=== PATIENT | male | born 1975 | race Caucasian/White ===

== ENCOUNTER 2020-12-09 22:58 | Inpatient (IN) ==
[2020-12-10 00:14] LABS: Albumin 2.8 g/dL (3.2-5.2); Albumin/Globulin Ratio 0.8 (1-3); C Reactive Protein 23.08 mg/L (<8.01); Calcium 9.3 mg/dL (8.6-10.3); Globulin 3.6 g/dL (2-4); Total Bilirubin 5.1 mg/dL (0.2-1.0); Total Protein 6.4 g/dL (6.4-8.9)
[2020-12-10 00:19] LABS: INR 1.73 (0.86-1.15)
[2020-12-10] MEDS ORDERED: Iodixanol (CONTRAST) 320 MG/ML 100 ML SDV IV ONE ×2 (00:36→01:23)
[2020-12-10 01:14] LABS: Magnesium 1.8 mg/dL (1.9-2.7)
[2020-12-10 01:17] LABS: Troponin I 0.01 ng/mL (<0.03)
[2020-12-10 01:42] LABS: Hematocrit 25 % (42-52); Hemoglobin 8.6 g/dL (14.0-18.0); Mean Corpuscular HGB Conc 35 g/dL (31-36); Mean Corpuscular Hemoglobin 35 pg (27-31); Mean Corpuscular Volume 102 fL (80-94); Red Blood Count 2.43 10^6 /uL (4.18-5.48); Red Cell Distribution Width 14 % (10-15); White Blood Count 6.4 10^3/uL (3.5-10.8)
[2020-12-10 01:58] LABS: ABS Neutrophils 4.4 10^3/ul (1.5-7.7); Eosinophil % 0.8 %; Lymphocyte % 15.6 %; Mean Platelet Volume 7.1 fL (7.4-10.4); Platelet Count 92 10^3/uL (150-450)
[2020-12-10] MEDS ORDERED: Magnesium Sulfate 2 gm BAG 2 GM/50 ML BAG IVPB ONE (04:29)
[2020-12-10 04:38] LABS: Direct Bilirubin 1.6 mg/dL (0.03-0.18)
[2020-12-10] MEDS ORDERED: Ondansetron 4 mg VIAL 2 MG/ML 2 ml VIAL IV PRN (05:10)
[2020-12-10 07:26] LABS: Rapid COVID-19 Molecular Undetected (Undetected)
[2020-12-10 07:55] LABS: TSH Ultra Thyroid Stim Horm 2.16 mcIU/mL (0.34-5.60)
[2020-12-10 08:06] LABS: Folate 5.31 ng/mL (5.90-24.80)
[2020-12-10 09:17] LABS: ABS Eosinophils 0.1 10^3/ul (0-0.6); ABS Lymphocytes 1.2 10^3/ul (1.0-4.8); ABS Monocytes 0.9 10^3/ul (0-0.8); ABS Neutrophils 4.5 10^3/ul (1.5-7.7); Hematocrit 24 % (42-52); Hemoglobin 8.4 g/dL (14.0-18.0); Lymphocyte % 17.6 %; Mean Corpuscular HGB Conc 34 g/dL (31-36); Mean Corpuscular Hemoglobin 35 pg (27-31); Mean Corpuscular Volume 101 fL (80-94); Mean Platelet Volume 6.7 fL (7.4-10.4); Nucleated Red Blood Cells % 0.1; Platelet Count 94 10^3/uL (150-450); Red Blood Count 2.42 10^6 /uL (4.18-5.48); Red Cell Distribution Width 14 % (10-15); White Blood Count 6.7 10^3/uL (3.5-10.8)
[2020-12-10 09:21] LABS: Activated Partial Thrombo Time 32.8 seconds (26.0-38.0); INR 1.79 (0.86-1.15)
[2020-12-10 09:57] LABS: Urine Appearance Cloudy; Urine Bilirubin Negative (Negative); Urine Blood Negative (Negative); Urine Color Amber; Urine Glucose Negative (Negative); Urine Ketones Negative (Negative); Urine Nitrite Negative (Negative); Urine Protein 1+(30 mg/dL) (Negative); Urine Specific Gravity 1.058 (1.002-1.030); Urine Urobilinogen Positive (Negative)
[2020-12-10 10:07] LABS: Urine Bacteria 1+ (Absent); Urine Red Blood Cell 3+(>10/hpf) (Absent); Urine Sperm Present (Absent); Urine Squamous Epithelial Cell Present (Absent); Urine White Blood Cell Trace(0-5/hpf) (Absent); Urine Yeast Present (Absent)
[2020-12-10 10:35] LABS: Hepatitis B Surface Antigen Nonreactive (Nonreactive)
[2020-12-10 10:40] LABS: Hepatitis A Ab IgM Negative (Negative); Hepatitis B Core IgM Nonreactive (Nonreactive)
[2020-12-10 10:52] LABS: Hepatitis B Surface Ab Not Immune (Immune); Hepatitis C Antibody Negative (Negative)
[2020-12-10] MEDS: Nicotine PATCH 14 MG/24 HR PATCH TRANSDERM SCH (11:54)
[2020-12-10] MEDS: Heparin 5000 UNITS/ML 1 mL VIAL SUBCUT SCH ×2 (13:13→20:05)
[2020-12-10] MEDS: Mupirocin 2% OINT TUBE TOPICAL SCH ×2 (13:13→20:05)
[2020-12-10] MEDS: Multivitamins/Minerals TAB PO SCH (13:13)
[2020-12-10] MEDS ORDERED: Albumin Human 25% 25 GM/100 ML BTL IV SCH (16:00)
[2020-12-10 16:13] LABS: Body Fluid Source Peritonial Fluid
[2020-12-10] MEDS ORDERED: Albumin Human 25% 25 GM/100 ML BTL IV ONE (16:13)
[2020-12-10] MEDS ORDERED: Albumin Human 25% 50 GM/200 ML BTL IV ONE (16:18)
[2020-12-10] MEDS ORDERED: Polyethylene Glycol 3350 17 GM PACKET PO PRN (16:21)
[2020-12-10] MEDS: Albumin Human 25% 25 GM/100 ML BTL IV SCH ×2 (16:37→17:33)
[2020-12-10 17:26] LABS: Body Fluid WBC 1158 /mcL
[2020-12-10 17:59] LABS: Body Fluid Mono 47 %; Body Fluid Total Cells Counted 200
[2020-12-10 18:00] LABS: Body Fluid Appearance Clear; Body Fluid Color Yellow
[2020-12-11 05:15] LABS: INR 1.84 (0.86-1.15)
[2020-12-11 05:22] LABS: ABS Eosinophils 0.1 10^3/ul (0-0.6); ABS Lymphocytes 1.1 10^3/ul (1.0-4.8); ABS Monocytes 0.9 10^3/ul (0-0.8); ABS Neutrophils 3.9 10^3/ul (1.5-7.7); Eosinophil % 1.1 %; Hematocrit 25 % (42-52); Hemoglobin 8.5 g/dL (14.0-18.0); Lymphocyte % 18.3 %; Mean Corpuscular HGB Conc 35 g/dL (31-36); Mean Corpuscular Hemoglobin 35 pg (27-31); Mean Corpuscular Volume 101 fL (80-94); Mean Platelet Volume 6.5 fL (7.4-10.4); Nucleated Red Blood Cells % 0.1; Platelet Count 82 10^3/uL (150-450); Red Blood Count 2.45 10^6 /uL (4.18-5.48); Red Cell Distribution Width 14 % (10-15); White Blood Count 5.9 10^3/uL (3.5-10.8)
[2020-12-11] MEDS: Heparin 5000 UNITS/ML 1 mL VIAL SUBCUT SCH ×3 (05:22→20:56)
[2020-12-11 05:26] LABS: Albumin 2.9 g/dL (3.2-5.2); Albumin/Globulin Ratio 0.9 (1-3); Calcium 8.9 mg/dL (8.6-10.3); Direct Bilirubin 1.1 mg/dL (0.03-0.18); Globulin 3.1 g/dL (2-4); Magnesium 1.9 mg/dL (1.9-2.7); Potassium 3.7 mmol/L (3.5-5.0); Total Bilirubin 4.1 mg/dL (0.2-1.0)
[2020-12-11] MEDS ORDERED: Potassium Chlor 20 meq TAB.ER PO ONE (07:18)
[2020-12-11] MEDS ORDERED: Magnesium Sulfate IV 1GM/100ML 1 GM/100 ML BAG IV ONE (07:18)
[2020-12-11] MEDS ORDERED: Albumin Human 25% 25 GM/100 ML BTL IV ONE (07:30)
[2020-12-11] MEDS: Multivitamins/Minerals TAB PO SCH (09:10)
[2020-12-11] MEDS: Mupirocin 2% OINT TUBE TOPICAL SCH ×2 (09:24→20:56)
[2020-12-11] MEDS: Nicotine PATCH 14 MG/24 HR PATCH TRANSDERM SCH (11:31)
[2020-12-11] MEDS: Polyethylene Glycol 3350 17 GM PACKET PO SCH (20:57)
[2020-12-12] MEDS: Heparin 5000 UNITS/ML 1 mL VIAL SUBCUT SCH ×3 (05:42→18:08)
[2020-12-12 05:48] LABS: ABS Eosinophils 0.1 10^3/ul (0-0.6); ABS Lymphocytes 1.3 10^3/ul (1.0-4.8); ABS Monocytes 1.1 10^3/ul (0-0.8); ABS Neutrophils 5.3 10^3/ul (1.5-7.7); Eosinophil % 1.2 %; Hematocrit 27 % (42-52); Lymphocyte % 16.2 %; Mean Corpuscular HGB Conc 34 g/dL (31-36); Mean Corpuscular Hemoglobin 34 pg (27-31); Mean Corpuscular Volume 101 fL (80-94); Mean Platelet Volume 6.6 fL (7.4-10.4); Platelet Count 91 10^3/uL (150-450); Red Blood Count 2.63 10^6 /uL (4.18-5.48); Red Cell Distribution Width 14 % (10-15); White Blood Count 7.9 10^3/uL (3.5-10.8)
[2020-12-12 05:54] LABS: INR 1.76 (0.86-1.15)
[2020-12-12 06:10] LABS: Albumin 2.9 g/dL (3.2-5.2); Albumin/Globulin Ratio 0.9 (1-3); Direct Bilirubin 1.1 mg/dL (0.03-0.18); Globulin 3.2 g/dL (2-4); Indirect Bilirubin 3.2 mg/dL (0.3-1.0); Potassium 3.8 mmol/L (3.5-5.0); Total Bilirubin 4.3 mg/dL (0.2-1.0); Total Protein 6.1 g/dL (6.4-8.9)
[2020-12-12] MEDS ORDERED: Potassium Chlor 20 meq TAB.ER PO ONE (07:28)
[2020-12-12] MEDS: Polyethylene Glycol 3350 17 GM PACKET PO SCH ×2 (09:50→10:12)
[2020-12-12] MEDS: Multivitamins/Minerals TAB PO SCH (10:11)
[2020-12-12] MEDS: Mupirocin 2% OINT TUBE TOPICAL SCH ×2 (10:13→20:38)
[2020-12-12 12:09] LABS: Glucose, BF 124 mg/dL
[2020-12-12 12:18] LABS: Fluid Type, Protein, Total PERITONEAL; Total Protein, BF 1.1 g/dL
[2020-12-12 12:21] LABS: Albumin, BF 0.6 g/dL; Fluid Type, Albumin PERITONEAL
[2020-12-12 12:45] LABS: Lactate Dehydrogenase, BF 40 U/L
[2020-12-12] MEDS: Nicotine PATCH 14 MG/24 HR PATCH TRANSDERM SCH (13:47)
[2020-12-12] MEDS ORDERED: Pantoprazole VIAL 40 MG VIAL IV ONE (14:41)
[2020-12-12] MEDS ORDERED: Octreotide Acetate 50 MCG in NS 0.9% 50 ML 50 ML IV ONE (14:47)
[2020-12-12 15:00] LABS: Hematocrit 29 % (42-52); Hemoglobin 9.8 g/dL (14.0-18.0); Mean Corpuscular HGB Conc 34 g/dL (31-36); Mean Corpuscular Hemoglobin 34 pg (27-31); Mean Corpuscular Volume 102 fL (80-94); Mean Platelet Volume 6.9 fL (7.4-10.4); Platelet Count 124 10^3/uL (150-450); Red Blood Count 2.86 10^6 /uL (4.18-5.48); Red Cell Distribution Width 14 % (10-15)
[2020-12-12] MEDS ORDERED: fentaNYL 100 mcg/2 ml 50 MCG/ML VIAL ONE ×2 (15:45→19:03)
[2020-12-12] MEDS ORDERED: Rocuronium 50 mg VIAL 10 mg/ml 5 ml VIAL (50 mg) ONE ×2 (15:45→17:35)
[2020-12-12] MEDS ORDERED: Midazolam 5 mg/5 ml VIAL 1 mg/ml 5 ml VIAL (5 mg) ONE (15:45)
[2020-12-12] MEDS ORDERED: Etomidate 20 mg/10 ml 2 MG/ML 10 ml VIAL ONE ×2 (15:45→15:46)
[2020-12-12] MEDS ORDERED: cefTRIAXone 1 gm/50 mL NS BAG 1 GM/50 ML BAG ONE (15:52)
[2020-12-12] MEDS: Octreotide Acetate 500 MCG in NS 0.9% 100 ml BAG 100 ML IV SCH (16:25)
[2020-12-12 16:29] LABS: Hematocrit 25 % (42-52); Hemoglobin 8.4 g/dL (14.0-18.0)
[2020-12-12] MEDS ORDERED: Ondansetron 4 mg VIAL 2 MG/ML 2 ml VIAL ONE (17:19)
[2020-12-12] MEDS ORDERED: Dexamethasone IV 4 MG/ML VIAL 1 ml VIAL ONE (17:19)
[2020-12-12] MEDS ORDERED: CALCIUM GLUCONATE 1GM/50ML NS BAG IV ONE (17:30)
[2020-12-12] MEDS ORDERED: D5W IV ONE (17:30)
[2020-12-12] MEDS ORDERED: CALCIUM CHLORIDE IV ONE (17:30)
[2020-12-12] MEDS ORDERED: fentaNYL INFUSION 50 mcg/mL VL 2,500 MCG/50 ML VIAL IV SCH (18:00)
[2020-12-12] MEDS ORDERED: Midazolam 50 MG VIAL IV DRIP 50 ML IV SCH (18:00)
[2020-12-12] MEDS: Pantoprazole 80 mg in NS BAG 80 MG/250 ML BAG IV SCH (18:37)
[2020-12-12] MEDS ORDERED: Calcium Gluconate 2 GM in NS 0.9% 100 ml BAG 100 ML IV ONE (18:40)
[2020-12-12] MEDS ORDERED: fentaNYL 100 mcg/2 ml 50 MCG/ML VIAL IV SLOW PU ONE (19:02)
[2020-12-12 19:23] LABS: ABS Eosinophils 0.1 10^3/ul (0-0.6); ABS Lymphocytes 0.8 10^3/ul (1.0-4.8); ABS Monocytes 1.4 10^3/ul (0-0.8); Eosinophil % 0.5 %; Hematocrit 29 % (42-52); Hemoglobin 9.9 g/dL (14.0-18.0); Mean Corpuscular HGB Conc 34 g/dL (31-36); Mean Corpuscular Hemoglobin 33 pg (27-31); Mean Corpuscular Volume 98 fL (80-94); Mean Platelet Volume 6.9 fL (7.4-10.4); Platelet Count 113 10^3/uL (150-450); Red Blood Count 3.01 10^6 /uL (4.18-5.48); Red Cell Distribution Width 18 % (10-15); White Blood Count 11.2 10^3/uL (3.5-10.8)
[2020-12-12 19:37] LABS: INR 1.53 (0.86-1.15)
[2020-12-12] MEDS: cefTRIAXone 1 gm/50 mL NS BAG 1 GM/50 ML BAG IVPB SCH (19:40)
[2020-12-12 19:45] LABS: Albumin 3.1 g/dL (3.2-5.2); Calcium 8.7 mg/dL (8.6-10.3); Magnesium 1.8 mg/dL (1.9-2.7); Phosphorus 4.4 mg/dL (2.5-5.0); Total Bilirubin 6.1 mg/dL (0.2-1.0); Total Protein 6.1 g/dL (6.4-8.9)
[2020-12-12] MEDS ORDERED: Folic Acid IV 5 MG/ML 10 ML VIAL (50 mg) IV SCH (20:00)
[2020-12-12] MEDS: Folic Acid IV 1 MG in NS 0.9% 50 ML 50 ML IVPB SCH (20:37)
[2020-12-13] MEDS: Octreotide Acetate 500 MCG in NS 0.9% 100 ml BAG 100 ML IV SCH ×3 (01:10→21:31)
[2020-12-13] MEDS: Pantoprazole 80 mg in NS BAG 80 MG/250 ML BAG IV SCH ×3 (01:10→21:26)
[2020-12-13] MEDS ORDERED: NS 0.9% 1000 ml BAG 1,000 ML IV SCH (03:00)
[2020-12-13 04:49] LABS: ABS Lymphocytes 0.3 10^3/ul (1.0-4.8); ABS Monocytes 0.8 10^3/ul (0-0.8); ABS Neutrophils 4.5 10^3/ul (1.5-7.7); Albumin 2.7 g/dL (3.2-5.2); Calcium 8.5 mg/dL (8.6-10.3); Eosinophil % 0.2 %; Globulin 2.7 g/dL (2-4); Hematocrit 25 % (42-52); Hemoglobin 8.7 g/dL (14.0-18.0); Indirect Bilirubin 4.6 mg/dL (0.3-1.0); Lymphocyte % 5.4 %; Magnesium 1.8 mg/dL (1.9-2.7); Mean Corpuscular HGB Conc 34 g/dL (31-36); Mean Corpuscular Hemoglobin 34 pg (27-31); Mean Corpuscular Volume 98 fL (80-94); Red Blood Count 2.59 10^6 /uL (4.18-5.48); Red Cell Distribution Width 18 % (10-15); Total Bilirubin 6.6 mg/dL (0.2-1.0); Total Protein 5.4 g/dL (6.4-8.9); White Blood Count 5.6 10^3/uL (3.5-10.8)
[2020-12-13 04:50] LABS: Potassium 5.3 mmol/L (3.5-5.0)
[2020-12-13 05:35] LABS: Mean Platelet Volume 7.1 fL (7.4-10.4); Platelet Count 70 10^3/uL (150-450)
[2020-12-13] MEDS ORDERED: Magnesium Sulfate 2 gm BAG 2 GM/50 ML BAG IVPB ONE (07:48)
[2020-12-13] MEDS: Multivitamins/Minerals TAB PO SCH (08:15)
[2020-12-13] MEDS: Nicotine PATCH 14 MG/24 HR PATCH TRANSDERM SCH (08:21)
[2020-12-13] MEDS ORDERED: Furosemide 40 mg/4 ml IV VIAL IV SLOW PU ONE (08:43)
[2020-12-13] MEDS: Mupirocin 2% OINT TUBE TOPICAL SCH ×2 (09:32→21:19)
[2020-12-13] MEDS ORDERED: Albumin Human 25% 100 GM/400 ML BTL IV SCH (10:00)
[2020-12-13] MEDS ORDERED: Norepinephrine 16MCG/ML IVPRE 4,000 MCG/250 ML BAG IV SCH (10:00)
[2020-12-13] MEDS ORDERED: Norepinephrine IV 4 MG in NS 0.9% 250 ml 4,000 MCG/246 ML IV.FLUID IV SCH ×3 (11:00→17:56)
[2020-12-13] MEDS: Albumin Human 25% 25 GM/100 ML IV SCH ×4 (11:53→16:08)
[2020-12-13] MEDS: Dextran 70/Hypromellose Tears Eye Drops 15 ml BTL (for Artificials Tears) BOTH EYES SCH ×7 (11:56→22:59)
[2020-12-13 12:27] LABS: ABS Lymphocytes 0.5 10^3/ul (1.0-4.8); ABS Monocytes 0.8 10^3/ul (0-0.8); ABS Neutrophils 4.5 10^3/ul (1.5-7.7); Hematocrit 24 % (42-52); Hemoglobin 8.3 g/dL (14.0-18.0); Lymphocyte % 9.2 %; Mean Corpuscular HGB Conc 34 g/dL (31-36); Mean Corpuscular Hemoglobin 33 pg (27-31); Mean Corpuscular Volume 98 fL (80-94); Mean Platelet Volume 7.1 fL (7.4-10.4); Platelet Count 72 10^3/uL (150-450); Red Blood Count 2.47 10^6 /uL (4.18-5.48); Red Cell Distribution Width 18 % (10-15); White Blood Count 5.9 10^3/uL (3.5-10.8)
[2020-12-13] MEDS: cefTRIAXone 1 gm/50 mL NS BAG 1 GM/50 ML BAG IVPB SCH (16:09)
[2020-12-13] MEDS ORDERED: fentaNYL 100 mcg/2 ml 50 MCG/ML VIAL IV SLOW PU PRN (16:18)
[2020-12-13 19:20] LABS: ABS Lymphocytes 0.7 10^3/ul (1.0-4.8); ABS Monocytes 0.8 10^3/ul (0-0.8); ABS Neutrophils 4.5 10^3/ul (1.5-7.7); Hematocrit 23 % (42-52); Hemoglobin 7.8 g/dL (14.0-18.0); Lymphocyte % 11.2 %; Mean Corpuscular HGB Conc 34 g/dL (31-36); Mean Corpuscular Hemoglobin 34 pg (27-31); Mean Corpuscular Volume 99 fL (80-94); Mean Platelet Volume 7.5 fL (7.4-10.4); Platelet Count 67 10^3/uL (150-450); Red Blood Count 2.32 10^6 /uL (4.18-5.48); Red Cell Distribution Width 18 % (10-15); White Blood Count 5.9 10^3/uL (3.5-10.8)
[2020-12-13] MEDS: Chlorhexidine MOUTHWASH 0.12% 15 ML UDC TOPICAL SCH (19:32)
[2020-12-13 20:57] LABS: Calcium 9.1 mg/dL (8.6-10.3)
[2020-12-13] MEDS: Folic Acid IV 1 MG in NS 0.9% 50 ML 50 ML IVPB SCH (21:21)
[2020-12-14] MEDS: Chlorhexidine MOUTHWASH 0.12% 15 ML UDC TOPICAL SCH ×5 (01:22→19:11)
[2020-12-14] MEDS: Dextran 70/Hypromellose Tears Eye Drops 15 ml BTL (for Artificials Tears) BOTH EYES SCH ×11 (01:22→22:14)
[2020-12-14] MEDS: fentaNYL 100 mcg/2 ml 50 MCG/ML VIAL IV SLOW PU PRN ×2 (01:34→04:30)
[2020-12-14 04:55] LABS: ABS Monocytes 0.8 10^3/ul (0-0.8); ABS Neutrophils 4.5 10^3/ul (1.5-7.7); Hematocrit 24 % (42-52); Hemoglobin 8.1 g/dL (14.0-18.0); Lymphocyte % 15.7 %; Mean Corpuscular HGB Conc 34 g/dL (31-36); Mean Corpuscular Hemoglobin 33 pg (27-31); Mean Corpuscular Volume 98 fL (80-94); Mean Platelet Volume 7.2 fL (7.4-10.4); Platelet Count 79 10^3/uL (150-450); Red Blood Count 2.43 10^6 /uL (4.18-5.48); Red Cell Distribution Width 18 % (10-15); White Blood Count 6.3 10^3/uL (3.5-10.8)
[2020-12-14 05:06] LABS: INR 2.09 (0.86-1.15)
[2020-12-14 05:09] LABS: Albumin 3.4 g/dL (3.2-5.2); Albumin/Globulin Ratio 1.3 (1-3); Calcium 9.4 mg/dL (8.6-10.3); Direct Bilirubin 2.1 mg/dL (0.03-0.18); Globulin 2.6 g/dL (2-4); Indirect Bilirubin 2.1 mg/dL (0.3-1.0); Magnesium 2.2 mg/dL (1.9-2.7); Phosphorus 4.5 mg/dL (2.5-5.0); Potassium 4.4 mmol/L (3.5-5.0); Total Bilirubin 4.2 mg/dL (0.2-1.0)
[2020-12-14] MEDS: Octreotide Acetate 500 MCG in NS 0.9% 100 ml BAG 100 ML IV SCH ×2 (06:13→19:06)
[2020-12-14] MEDS: Pantoprazole 80 mg in NS BAG 80 MG/250 ML BAG IV SCH ×2 (08:02→18:02)
[2020-12-14] MEDS ORDERED: Lactulose 300 ML for PR 200 GM/300 ML BTL PR SCH ×2 (09:00→17:00)
[2020-12-14] MEDS ORDERED: Norepinephrine IV 4 MG in NS 0.9% 250 ml 4,000 MCG/246 ML IV.FLUID IV SCH (09:09)
[2020-12-14] MEDS: Albumin Human 25% 25 GM/100 ML BTL IV SCH ×4 (10:07→17:45)
[2020-12-14] MEDS: Mupirocin 2% OINT TUBE TOPICAL SCH ×2 (10:08→19:39)
[2020-12-14] MEDS: Thiamine 100 MG/ML 2 ml VIAL 100 MG in NS 0.9% 50 ML 50 ML IV SCH (10:33)
[2020-12-14 15:26] LABS: PCO2 Arterial 31 mmHg (35-45); PO2 Arterial 92 mmHg (80-100)
[2020-12-14] MEDS ORDERED: Albumin Human 5% 0 GM/0 ML BTL IV ONE (17:20)
[2020-12-14] MEDS: cefTRIAXone 1 gm/50 mL NS BAG 1 GM/50 ML BAG IVPB SCH (17:41)
[2020-12-14] MEDS ORDERED: Albumin Human 25% 25 GM/100 ML BTL IV ONE (18:00)
[2020-12-14] MEDS: Lactulose 300 ML for PR 200 GM/300 ML BTL PR SCH (18:03)
[2020-12-14] MEDS: Folic Acid IV 1 MG in NS 0.9% 50 ML 50 ML IVPB SCH (19:38)
[2020-12-14 22:58] LABS: Hematocrit 18 % (42-52); Hemoglobin 6.1 g/dL (14.0-18.0); Mean Corpuscular HGB Conc 34 g/dL (31-36); Mean Corpuscular Hemoglobin 33 pg (27-31); Mean Corpuscular Volume 98 fL (80-94); Mean Platelet Volume 6.9 fL (7.4-10.4); Platelet Count 68 10^3/uL (150-450); Red Blood Count 1.83 10^6 /uL (4.18-5.48); Red Cell Distribution Width 18 % (10-15); White Blood Count 3.9 10^3/uL (3.5-10.8)
[2020-12-15] MEDS: Lactulose 300 ML for PR 200 GM/300 ML BTL PR SCH (00:53)
[2020-12-15] MEDS: Dextran 70/Hypromellose Tears Eye Drops 15 ml BTL (for Artificials Tears) BOTH EYES SCH ×6 (02:04→22:41)
[2020-12-15] MEDS: fentaNYL 100 mcg/2 ml 50 MCG/ML VIAL IV SLOW PU PRN (02:04)
[2020-12-15 03:21] LABS: Immature Retic Fraction 0.54; RBC Retic Count 1.98 10^6/uL (4.18-5.48); Red Blood Count 1.98 10^6 /uL (4.18-5.48)
[2020-12-15 03:22] LABS: Corrected Retic Count 1.2 % (0.5-1.5); Hematocrit 19 % (42-52); Hematocrit for Retic CNT 19 % (42-52); Hemoglobin 6.5 g/dL (14.0-18.0); Mean Corpuscular HGB Conc 34 g/dL (31-36); Mean Corpuscular Hemoglobin 33 pg (27-31); Mean Corpuscular Volume 96 fL (80-94); Mean Platelet Volume 7.2 fL (7.4-10.4); Platelet Count 62 10^3/uL (150-450); Red Cell Distribution Width 20 % (10-15); White Blood Count 3.9 10^3/uL (3.5-10.8)
[2020-12-15 03:23] LABS: INR 2.41 (0.86-1.15)
[2020-12-15 03:35] LABS: Albumin 3.5 g/dL (3.2-5.2); Albumin/Globulin Ratio 1.8 (1-3); Calcium 9.5 mg/dL (8.6-10.3); Direct Bilirubin 1.6 mg/dL (0.03-0.18); Indirect Bilirubin 2.1 mg/dL (0.3-1.0); Magnesium 1.9 mg/dL (1.9-2.7); Phosphorus 2.3 mg/dL (2.5-5.0); Total Bilirubin 3.7 mg/dL (0.2-1.0); Total Protein 5.5 g/dL (6.4-8.9)
[2020-12-15] MEDS: Pantoprazole 80 mg in NS BAG 80 MG/250 ML BAG IV SCH ×2 (04:06→15:09)
[2020-12-15] MEDS: Octreotide Acetate 500 MCG in NS 0.9% 100 ml BAG 100 ML IV SCH ×2 (05:00→15:08)
[2020-12-15] MEDS ORDERED: Acetaminophen IV 1 GM/100ML 100 ML IV ONE (07:24)
[2020-12-15] MEDS: Mupirocin 2% OINT TUBE TOPICAL SCH ×2 (07:47→22:01)
[2020-12-15 08:35] LABS: Hematocrit 21 % (42-52); Hemoglobin 7.1 g/dL (14.0-18.0); Mean Corpuscular HGB Conc 34 g/dL (31-36); Mean Corpuscular Hemoglobin 32 pg (27-31); Mean Corpuscular Volume 95 fL (80-94); Mean Platelet Volume 7.2 fL (7.4-10.4); Platelet Count 60 10^3/uL (150-450); Red Cell Distribution Width 19 % (10-15); White Blood Count 5.3 10^3/uL (3.5-10.8)
[2020-12-15] MEDS ORDERED: Potassium Phosphate IV 15 MMOLE in NS 0.9% 250 ml 250 ML IVPB ONE (08:43)
[2020-12-15] MEDS ORDERED: Furosemide 40 mg/4 ml IV VIAL IV SLOW PU ONE (09:15)
[2020-12-15] MEDS: Albumin Human 25% 25 GM/100 ML BTL IV SCH ×4 (10:20→15:17)
[2020-12-15] MEDS: Thiamine 100 MG/ML 2 ml VIAL 100 MG in NS 0.9% 50 ML 50 ML IV SCH (10:21)
[2020-12-15] MEDS: Sucralfate 1 gm SUSP 1 GM/10 ML UDC PO SCH ×3 (11:46→17:25)
[2020-12-15] MEDS: Lactulose 30 ml UDC PO SCH ×3 (11:46→22:29)
[2020-12-15] MEDS ORDERED: Phytonadione Oral Solution 5 MG/25 ML UDC PO ONE (15:28)
[2020-12-15] MEDS ORDERED: PHYTONADIONE PO ONE (15:28)
[2020-12-15] MEDS: cefTRIAXone 1 gm/50 mL NS BAG 1 GM/50 ML BAG IVPB SCH (16:49)
[2020-12-15] MEDS: Folic Acid IV 1 MG in NS 0.9% 50 ML 50 ML IVPB SCH (21:55)
[2020-12-15 22:22] LABS: Hematocrit 20 % (42-52); Hemoglobin 6.8 g/dL (14.0-18.0)
[2020-12-16] MEDS: Sucralfate 1 gm SUSP 1 GM/10 ML UDC PO SCH ×3 (02:09→10:38)
[2020-12-16] MEDS: Pantoprazole 80 mg in NS BAG 80 MG/250 ML BAG IV SCH ×4 (02:11→20:56)
[2020-12-16] MEDS: Dextran 70/Hypromellose Tears Eye Drops 15 ml BTL (for Artificials Tears) BOTH EYES SCH ×6 (02:21→21:07)
[2020-12-16] MEDS: Octreotide Acetate 500 MCG in NS 0.9% 100 ml BAG 100 ML IV SCH ×2 (02:44→10:32)
[2020-12-16 06:47] LABS: Hematocrit 22 % (42-52); Hemoglobin 7.6 g/dL (14.0-18.0); Mean Corpuscular HGB Conc 34 g/dL (31-36); Mean Corpuscular Hemoglobin 33 pg (27-31); Mean Corpuscular Volume 95 fL (80-94); Mean Platelet Volume 7.4 fL (7.4-10.4); Platelet Count 51 10^3/uL (150-450); Red Blood Count 2.32 10^6 /uL (4.18-5.48); Red Cell Distribution Width 19 % (10-15); White Blood Count 7.5 10^3/uL (3.5-10.8)
[2020-12-16 07:03] LABS: Albumin 3.9 g/dL (3.2-5.2); Calcium 9.9 mg/dL (8.6-10.3); Direct Bilirubin 2.1 mg/dL (0.03-0.18); Indirect Bilirubin 3.1 mg/dL (0.3-1.0); Magnesium 1.9 mg/dL (1.9-2.7); Phosphorus 1.5 mg/dL (2.5-5.0); Potassium 3.7 mmol/L (3.5-5.0); Total Bilirubin 5.2 mg/dL (0.2-1.0); Total Protein 5.9 g/dL (6.4-8.9)
[2020-12-16 07:06] LABS: INR 2.38 (0.86-1.15)
[2020-12-16] MEDS ORDERED: Potassium Phosphate IV 15 MMOLE in NS 0.9% 250 ml 250 ML IVPB ONE (08:30)
[2020-12-16] MEDS ORDERED: Rocuronium 50 mg VIAL 10 mg/ml 5 ml VIAL (50 mg) ONE (08:36)
[2020-12-16] MEDS ORDERED: Succinylcholine 200 mg VIAL 20 mg/ml 10 ml VIAL (200 mg) ONE (08:36)
[2020-12-16] MEDS ORDERED: Etomidate 40 mg/20 ml (2 MG/ML) 20 ml VIAL (40 mg) ONE (08:45)
[2020-12-16] MEDS ORDERED: Propofol 10 MG/ML 20 ML BTL ONE (08:50)
[2020-12-16] MEDS ORDERED: Propofol 10 mg/ml 100 ML BTL 100 ML ONE (09:02)
[2020-12-16 09:11] LABS: Hematocrit 22 % (42-52); Hemoglobin 7.6 g/dL (14.0-18.0); Mean Corpuscular HGB Conc 34 g/dL (31-36); Mean Corpuscular Hemoglobin 33 pg (27-31); Mean Corpuscular Volume 95 fL (80-94); Mean Platelet Volume 7.3 fL (7.4-10.4); Platelet Count 50 10^3/uL (150-450); Red Blood Count 2.34 10^6 /uL (4.18-5.48); Red Cell Distribution Width 19 % (10-15); White Blood Count 7.5 10^3/uL (3.5-10.8)
[2020-12-16] MEDS: Mupirocin 2% OINT TUBE TOPICAL SCH ×2 (09:15→21:07)
[2020-12-16] MEDS: Lactulose 30 ml UDC PO SCH (09:15)
[2020-12-16 09:25] LABS: Calcium 9.6 mg/dL (8.6-10.3); Potassium 3.5 mmol/L (3.5-5.0)
[2020-12-16 09:59] LABS: Polychromasia 1+
[2020-12-16 10:00] LABS: Anisocytosis 2+
[2020-12-16] MEDS ORDERED: Propofol 10 mg/ml 100 ML BTL 100 ML IV SCH (10:00)
[2020-12-16] MEDS ORDERED: Norepinephrine 16MCG/ML IVPRE 4,000 MCG/250 ML BAG IV SCH (10:00)
[2020-12-16 10:01] LABS: ABS Lymphocytes 1.3 10^3/ul (1.0-4.8); ABS Monocytes 0.7 10^3/ul (0-0.8); ABS Neutrophils 5.5 10^3/ul (1.5-7.7); Eosinophil % 0.3 %; Lymphocyte % 17.1 %; Nucleated Red Blood Cells % 0.2
[2020-12-16] MEDS: Norepinephrine IV 4 MG in NS 0.9% 250 ml 4,000 MCG/246 ML IV.FLUID IV SCH ×2 (10:15→10:16)
[2020-12-16] MEDS: Thiamine 100 MG/ML 2 ml VIAL 100 MG in NS 0.9% 50 ML 50 ML IV SCH (10:50)
[2020-12-16] MEDS: Chlorhexidine MOUTHWASH 0.12% 15 ML UDC TOPICAL SCH ×4 (11:50→21:06)
[2020-12-16] MEDS: cefTRIAXone 1 gm/50 mL NS BAG 1 GM/50 ML BAG IVPB SCH (16:32)
[2020-12-16] MEDS: Propofol 10 mg/ml 100 ML BTL 100 ML IV SCH (17:24)
[2020-12-16] MEDS: Folic Acid IV 1 MG in NS 0.9% 50 ML 50 ML IVPB SCH (21:06)
[2020-12-17] MEDS: Propofol 10 mg/ml 100 ML BTL 100 ML IV SCH ×2 (00:12→06:24)
[2020-12-17] MEDS: Norepinephrine IV 4 MG in NS 0.9% 250 ml 4,000 MCG/246 ML IV.FLUID IV SCH (01:44)
[2020-12-17] MEDS: Chlorhexidine MOUTHWASH 0.12% 15 ML UDC TOPICAL SCH ×3 (02:09→09:07)
[2020-12-17] MEDS: Dextran 70/Hypromellose Tears Eye Drops 15 ml BTL (for Artificials Tears) BOTH EYES SCH ×3 (02:09→09:08)
[2020-12-17 05:00] LABS: Hematocrit 23 % (42-52); Hemoglobin 7.9 g/dL (14.0-18.0); Mean Corpuscular HGB Conc 34 g/dL (31-36); Mean Corpuscular Hemoglobin 33 pg (27-31); Mean Corpuscular Volume 96 fL (80-94); Mean Platelet Volume 7.3 fL (7.4-10.4); Platelet Count 57 10^3/uL (150-450); Red Blood Count 2.42 10^6 /uL (4.18-5.48); Red Cell Distribution Width 19 % (10-15); White Blood Count 10.7 10^3/uL (3.5-10.8)
[2020-12-17 05:13] LABS: Calcium 9.3 mg/dL (8.6-10.3); Magnesium 1.9 mg/dL (1.9-2.7); Phosphorus 2.5 mg/dL (2.5-5.0); Potassium 3.6 mmol/L (3.5-5.0)
[2020-12-17] MEDS ORDERED: KCL 20 MEQ/100 ML IVPREMIX 20 MEQ/100 ML BAG IV ONE (05:21)
[2020-12-17] MEDS: Pantoprazole 80 mg in NS BAG 80 MG/250 ML BAG IV SCH (07:48)
[2020-12-17] MEDS: Mupirocin 2% OINT TUBE TOPICAL SCH (09:07)
[2020-12-17] MEDS: Thiamine 100 MG/ML 2 ml VIAL 100 MG in NS 0.9% 50 ML 50 ML IV SCH (09:08)
[2020-12-17] MEDS ORDERED: Atropine 1% (ORAL/SL) 15 ML BTL SL PRN (09:22)
[2020-12-17] MEDS ORDERED: Morphine PCA ADULT 5 MG/ML 30 ML PCA SCH (09:30)
[2020-12-17] MEDS ORDERED: Lorazepam PYXIS KEY ONE (10:06)
[2020-12-17] MEDS: LORazepam 2 mg VIAL 1 ml IV PUSH PRN (10:26)
[2020-12-17] MEDS ORDERED: Lorazepam PYXIS KEY PRN (10:42)
[2020-12-17] MEDS ORDERED: Propofol 10 mg/ml 100 ML BTL 100 ML ONE (11:09)
[2020-12-17 22:34] VITALS: BP 101/54
[2020-12-18] MEDS: Atropine 1% (ORAL/SL) 15 ML BTL SL PRN ×5 (00:23→08:13)
[2020-12-18] MEDS: LORazepam 2 mg VIAL 1 ml IV PUSH PRN ×4 (05:18→12:50)
[2020-12-18] MEDS ORDERED: Acetaminophen IV 1 GM/100ML 100 ML IV PRN (05:50)
[2020-12-18] MEDS ORDERED: Morphine PCA ADULT 5 MG/ML 30 ML PCA SCH (13:15)
[2020-12-21] MEDS ORDERED: Scopolamine PATCH Remove NOTE PATCH OFF SCH (10:00)
== END 2020-12-18 14:43 | disposition expired | DRG 280 ==
LOC: ED 22:58 → MEDTELE 12-10 05:10 → SUATTDRO 12-10 05:10 → MEDTELE 12-11 21:20 → ICU 12-12 17:51
PROVIDERS: ADMIT Internal Medicine; ATTEND Internal Medicine
PROC: O.GIEGD (2020-12-12 15:30)